=== PATIENT | female | born 1985 | race Caucasian/White ===

== ENCOUNTER → 2024-02-23 | Outpatient (CLI) | payer OTHER ==
[2024-02-23 15:49] LABS: Follicle Stimulating Hormone 7.8 mIU/mL; Luteinizing Hormone 8.3 mIU/mL
== END | disposition home or self-care (01) ==
LOC: LABWHC1 08:54
PROVIDERS: ATTEND Obstetrics & Gynecology
DX: N97.9 Female infertility, unspecified (principal)
CPT/HCPCS: 36415; 83001; 83002; 84146; 84443